=== PATIENT | female | born 1975 | race Caucasian/White ===

== ENCOUNTER → 2021-01-06 12:28 | Outpatient (CLI) | payer SELFPAY ==
--- NOTE | 2021-01-06 13:05 | RAD_ITS ---
STUDY: XR Knee Complete 4 Views or More 01/06/2021 3:49 PM REASON FOR EXAM: Female, 45 years old. PAIN TECHNIQUE: XR Knee Complete 4 Views or More COMPARISON: None. FINDINGS: Normal visualized distal femur. Normal visualized proximal tibia and fibula. Normal proximal tibiofibular articulation. There is moderate degenerative arthrosis of the medial femorotibial compartment with moderate joint space narrowing. There is mild degenerative arthrosis of the lateral femorotibial compartment. There is mild degenerative arthrosis of the patellofemoral articulation. The soft tissue structures are unremarkable. RAD/Knee 4 or More Views IMPRESSION: Degenerative arthrosis. Electronically Signed: Ricky Chris MD at 15:50 EST , Service support ,
== END ==
PROVIDERS: PCP Family Medicine; Referring Provider Family Medicine; Visit Provider Family Medicine
DX: M25.561 Pain in right knee (principal)
CPT/HCPCS: 73564